=== PATIENT | male | born 1985 | race Caucasian/White ===

== ENCOUNTER 2016-11-06 07:44 | Inpatient (IN) | payer OTHER ==
[~2016-11-06] VITALS: Ht 182.9 cm; Wt 101.4 kg
[2016-11-06 07:50] VITALS: BP 120/76; PULSE 65; RESP 14; TEMP 98; O2SAT 98
--- NOTE | 2016-11-06 07:55 | PD ---
HPI Chief Complaint: Psychiatric Symptoms Time Seen by Provider: 07:52 Travel History International Travel<30 days: No Contact w/Intl Traveler<30days: No Traveled to known affect area: No History of Present Illness HPI This is a 31-year-old male who states he has a history of schizophrenia who presents to the emergency department brought in under a Mckay act. He reports that for several days he's been hearing voices telling him to run into traffic. This usually is a sign that his schizophrenia is getting out of control. His symptoms are moderate and constant, associated with some depression as the voices are telling him that he is an "idiot". He was brought in under a Mckay act by police. He admits to intermittent alcohol use and intermittent drug use. PFSH Past Medical History Medical History: Denies Significant Hx Social History Alcohol Use: Yes Tobacco Use: Yes Substance Use: Yes (marijuana and sometimes other drugs) Allergies-Medications (Allergen,Severity, Reaction): Coded Allergies: No Known Allergies (Unverified , 11/06/16) Reported Meds & Prescriptions Reported Meds & Active Scripts Active Reported Olanzapine 15 Mg Tab 15 Mg PO HS Sertraline (Sertraline HCl) 100 Mg Tab 100 Mg PO DAILY Review of Systems Except as stated in HPI: all other systems reviewed are Neg Physical Exam Narrative GENERAL: Disheveled SKIN: Warm and dry. HEAD: Atraumatic. Normocephalic. EYES: Pupils equal and round. No injection or drainage. ENT: Moist mucous membranes NECK: Trachea midline. CARDIOVASCULAR: Regular rate and rhythm. No murmur appreciated. RESPIRATORY: Clear to auscultation. Breath sounds equal bilaterally. GASTROINTESTINAL: Abdomen soft, non-tender, nondistended. MUSCULOSKELETAL: No obvious deformities. NEUROLOGICAL: Awake and alert. No obvious cranial nerve deficits. Moving all extremities. PSYCHIATRIC: Poor eye contact, flat affect Data Data Last Documented VS Vital Signs Date Time Temp Pulse Resp B/P Pulse Ox O2 Delivery O2 Flow Rate FiO2 11/06/16 07:50 98.0 65 14 120/76 98 Room Air Orders Complete Blood Count With Diff (11/06/16 07:52) Comprehensive Metabolic Panel (11/06/16 07:52) Drug Screen, Random Urine (11/06/16 07:52) Alcohol (Ethanol) (11/06/16 07:52) Psych Screen (11/06/16 07:52) Labs Laboratory Tests Test 11/06/16 11/06/16 07:56 08:09 White Blood Count 10.0 TH/MM3 Red Blood Count 5.32 MIL/MM3 Hemoglobin 15.8 GM/DL Hematocrit 45.9 % Mean Corpuscular Volume 86.2 FL Mean Corpuscular Hemoglobin 29.6 PG Mean Corpuscular Hemoglobin 34.3 % Concent Red Cell Distribution Width 14.0 % Platelet Count 243 TH/MM3 Mean Platelet Volume 9.4 FL Neutrophils (%) (Auto) 72.3 % Lymphocytes (%) (Auto) 20.0 % Monocytes (%) (Auto) 6.6 % Eosinophils (%) (Auto) 0.5 % Basophils (%) (Auto) 0.6 % Neutrophils # (Auto) 7.2 TH/MM3 Lymphocytes # (Auto) 2.0 TH/MM3 Monocytes # (Auto) 0.7 TH/MM3 Eosinophils # (Auto) 0.0 TH/MM3 Basophils # (Auto) 0.1 TH/MM3 CBC Comment DIFF FINAL Differential Comment Sodium Level 140 MEQ/L Potassium Level 4.0 MEQ/L Chloride Level 105 MEQ/L Carbon Dioxide Level 27.3 MEQ/L Anion Gap 8 MEQ/L Blood Urea Nitrogen 15 MG/DL Creatinine 0.79 MG/DL Estimat Glomerular Filtration 113 ML/MIN Rate Random Glucose 100 MG/DL Calcium Level 8.8 MG/DL Total Bilirubin 0.6 MG/DL Aspartate Amino Transf 36 U/L (AST/SGOT) Alanine Aminotransferase 51 U/L (ALT/SGPT) Alkaline Phosphatase 67 U/L Total Protein 7.7 GM/DL Albumin 4.0 GM/DL Ethyl Alcohol Level LESS THAN 3 MG/DL Urine Opiates Screen NEG Urine Barbiturates Screen NEG Urine Amphetamines Screen NEG Urine Benzodiazepines Screen NEG Urine Cocaine Screen NEG Urine Cannabinoids Screen NEG MDM Medical Decision Making Medical Screen Exam Complete: Yes Emergency Medical Condition: Yes Interpretation(s) afebrile, no tachycardia, normotensive no leukocytosis electrolytes within normal limits urine drug screen negative, alcohol negative Differential Diagnosis alcohol intoxication, drug intoxication, schizophrenia Narrative Course This is a 31-year-old male with a history of schizophrenia who presents to the emergency department with increasing auditory hallucinations. Patient's labs are all reassuring. I think is appropriate for psychiatric evaluation. Diagnosis Primary Impression: Schizophrenia Matilde Walker MD Nov 06, 2016 07:55
[2016-11-06] MEDS ORDERED: SERT-129 PO (07:57)
[2016-11-06] MEDS ORDERED: OLAN15TA PO (07:57)
[2016-11-06 08:08] LABS: AUTOMATED NEUTROPHIL # 7.2 TH/MM3 (1.8-7.7); BASOPHIL # 0.1 TH/MM3 (0-0.2); BASOPHIL % 0.6 % (0.0-2.0); EOSINOPHIL % 0.5 % (0.0-4.0); HEMATOCRIT 45.9 % (39.0-51.0); HEMO FLAGS DIFF FINAL; MEAN CELL VOLUME 86.2 FL (80.0-100.0); MEAN CORPUSCULAR HEMOGLOBIN 29.6 PG (27.0-34.0); MEAN CORPUSCULAR HGB CONC 34.3 % (32.0-36.0); MONO % 6.6 % (0.0-8.0); NEUT % 72.3 % (16.0-70.0); PLATELET COUNT 243 TH/MM3 (150-450); RED BLOOD COUNT 5.32 MIL/MM3 (4.50-5.90)
[2016-11-06 08:24] LABS: ANION GAP 8 MEQ/L (5-15)
[2016-11-06 08:27] LABS: ALKALINE PHOSPHATASE 67 U/L (45-117); ALT (GPT) 51 U/L (12-78); AST (GOT) 36 U/L (15-37); BICARBONATE 27.3 MEQ/L (21.0-32.0); BLOOD UREA NITROGEN 15 MG/DL (7-18); CHLORIDE 105 MEQ/L (98-107); GLOMERULAR FILTRATION RATE 113 ML/MIN (>89); SODIUM (NA) 140 MEQ/L (136-145); TOTAL BILIRUBIN ADULT 0.6 MG/DL (0.2-1.0)
[2016-11-06 08:58] LABS: AMPHETAMINE, URINE NEG (NEG); BARBITURATES, URINE NEG (NEG); COCAINE, URINE NEG (NEG)
[2016-11-06 09:40] VITALS: BP 122/68
[2016-11-06 10:40] VITALS: BP 105/58; PULSE 62; RESP 16; TEMP 96.9; O2SAT 98
[2016-11-06 14:00] VITALS: BP 118/69; PULSE 74; RESP 18
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
[2016-11-06] MEDS ORDERED: BENZTROPINE MESYLATE 2 MG/2 ML VIAL IM PRN (14:30)
[2016-11-06] MEDS ORDERED: ALUMINUM/MAGNESIUM/SIMETH 30 ML CUP PO PRN (14:30)
[2016-11-06] MEDS ORDERED: traZODone HCL 50 MG TAB PO PRN (14:30)
[2016-11-06] MEDS ORDERED: diphenhydrAMINE HCL 50 MG CAP PO PRN (14:30)
[2016-11-06] MEDS ORDERED: LORazepam 2 MG/ML VIAL IM PRN (14:30)
[2016-11-06] MEDS ORDERED: diphenhydrAMINE HCL 50 MG/ML VIAL IM PRN (14:30)
[2016-11-06] MEDS ORDERED: BENZTROPINE MESYLATE 1 MG TAB PO PRN (14:30)
[2016-11-06] MEDS ORDERED: MAGNESIUM HYDROXIDE SUSP 30 ML CUP PO PRN (14:30)
[2016-11-06] MEDS ORDERED: LORazepam 0.5 MG TAB PO PRN (14:30)
[2016-11-06] MEDS ORDERED: ACETAMINOPHEN 325 MG TAB PO PRN (14:30)
[2016-11-06] MEDS ORDERED: hydrOXYzine HCL 50 MG TAB PO PRN (15:00)
[2016-11-06] MEDS: OLANZapine 10 MG TAB PO SCH ×2 (16:12→20:50)
[2016-11-06 17:42] VITALS: BP 115/70; PULSE 78; RESP 18; TEMP 97.2
[2016-11-07 05:17] VITALS: BP 140/73; PULSE 88; RESP 18; TEMP 96.4
[2016-11-07 08:02] LABS: ANION GAP 7 MEQ/L (5-15); BICARBONATE 29.5 MEQ/L (21.0-32.0); BLOOD UREA NITROGEN 12 MG/DL (7-18); CHLORIDE 106 MEQ/L (98-107); GLOMERULAR FILTRATION RATE 116 ML/MIN (>89); HDL CHOLESTEROL 51.5 MG/DL (40.0-60.0); LDL CHOLESTEROL 79 MG/DL (0-99); POTASSIUM 4.3 MEQ/L (3.5-5.1); SODIUM (NA) 142 MEQ/L (136-145)
[2016-11-07] MEDS: NICOTINE 21 MG/24 HR PATCH T-DERMAL SCH (09:02)
[2016-11-07] MEDS: OLANZapine 10 MG TAB PO SCH ×2 (09:02→20:41)
[2016-11-07] MEDS: SERTRALINE HCL 50 MG TAB PO SCH (09:02)
[2016-11-07 09:35] VITALS: BP 140/73; PULSE 88; RESP 18; TEMP 98.6; O2SAT 94
[2016-11-07 09:52] LABS: HEMOGLOBIN A1a 1.1 %; HEMOGLOBIN A1b 0.8 %; HEMOGLOBIN Ao 86.2 %; HEMOGLOBIN LA1C 1.8 %; HEMOGLOBIN P3 3.3 %
--- NOTE | 2016-11-07 14:05 | HHI.PYPN ---
Subjective Remarks Pt seen and discussed with staff. He reports that he is tolerating medication without side effects. He reports AH persists but have decreased in intensity. He reports that he slept better last night and that he had not been sleeping prior to admission due to AH. No behavioral problems on unit. Review of Systems Psychiatric: COMPLAINS OF: Hallucinations Objective Alert: Yes [place]: Person, Place, Date, Situation Mood: Calm Affect: Flat Memory Intact: Immediate, Recent, Remote Hallucinations: Auditory Delusions: Yes Delusion Type: Paranoid Suicidal: Ideation (denies) Homicidal: Ideation (denies) Insight/Judgement poor Labs Test 11/07/16 07:16 Sodium Level 142 MEQ/L Potassium Level 4.3 MEQ/L Chloride Level 106 MEQ/L Carbon Dioxide Level 29.5 MEQ/L Anion Gap 7 MEQ/L Blood Urea Nitrogen 12 MG/DL Creatinine 0.77 MG/DL Estimat Glomerular Filtration 116 ML/MIN Rate Random Glucose 96 MG/DL Hemoglobin A1c 5.4 % Calcium Level 8.7 MG/DL Triglycerides Level 43 MG/DL Cholesterol Level 139 MG/DL LDL Cholesterol 79 MG/DL HDL Cholesterol 51.5 MG/DL Cholesterol/HDL Ratio 2.69 RATIO Vitals/IOs Vital Signs Date Time Temp Pulse Resp B/P Pulse Ox O2 Delivery O2 Flow Rate FiO2 11/07/16 09:35 98.6 88 18 140/73 94 11/06/16 10:40 Room Air Assessment & Plan Problem List: (1) schizoaffective disorder depressed Assessment & Plan Continue current tx plan. Estimated LOS: days Justification for Cont. Inpt. impairments in reality construction Request HC Surrog/Guard Advoc?: Ngoc Martinez MD Nov 07, 2016 14:04
[2016-11-07 19:17] VITALS: BP 112/62; PULSE 94; RESP 18; TEMP 97.9; O2SAT 98
[2016-11-08 05:56] VITALS: BP 120/71; PULSE 101; RESP 18; TEMP 98.2; O2SAT 98
[2016-11-08] MEDS: OLANZapine 10 MG TAB PO SCH (09:00)
[2016-11-08] MEDS: SERTRALINE HCL 50 MG TAB PO SCH (09:00)
[2016-11-08] MEDS: NICOTINE 21 MG/24 HR PATCH T-DERMAL SCH (09:00)
--- NOTE | 2016-11-08 11:39 | HHI.PYPN ---
Subjective Remarks Patient seen and examined with counselor. Chart reviewed. Case discussed with nursing staff who reports patient was still complaining of hearing voices this morning. On my examination today, the patient initially denies any auditory hallucinations but then describes some deprecatory auditory hallucinations somewhat later. He is a somewhat vague historian, and there does appear to be some subtle thought disorder. He denies any suicidal or homicidal ideation. He denies side effects from medications. Review of Systems ROS Limitations: Poor Historian Other No physical complaints today Objective Alert: Yes [place]: Person, Place, Date, Situation Mood: Calm Affect: Flat (remains quite flat) Memory Intact: Comment (Seems intact on clinical exam) Hallucinations: Auditory (variable, non-command) Delusions: No Delusion Type: Other (No delusions) Suicidal: Ideation (Denies SI) Homicidal: Ideation (Denies HI) Insight/Judgement Fair Remarks No abnormal motor movements noted Labs Labs reviewed. No new labs. Admission labs reviewed. Vitals/IOs Vital Signs Date Time Temp Pulse Resp B/P Pulse Ox O2 Delivery O2 Flow Rate FiO2 11/08/16 05:56 98.2 101 18 120/71 98 11/06/16 10:40 Room Air Assessment & Plan Problem List: (1) Schizoaffective disorder ICD Code: F25.9 Assessment & Plan Titrate Zyprexa to target residual psychotic symptoms. Continue Zoloft as ordered. Continue other medications and care as ordered. Justification for Cont. Inpt. Resolving impairments in reality construction. Medication changes in process. Risk for decompensation. Discharge Planning Pending psychiatric stabilization. Hopeful for discharge within the next day or 2. Request HC Surrog/Guard Advoc?: No Problem Qualifiers (1) Schizoaffective disorder: Qualified Code: F25.1 - Schizoaffective disorder, depressive type Dlyan Blas MD Nov 08, 2016 11:39
[2016-11-08 22:07] VITALS: BP 138/66; PULSE 83; RESP 18; TEMP 97.7; O2SAT 93
[2016-11-09 05:16] VITALS: BP 120/71; PULSE 67; RESP 18; TEMP 97.9; O2SAT 98
[2016-11-09] MEDS: SERTRALINE HCL 50 MG TAB PO SCH (08:13)
[2016-11-09] MEDS: NICOTINE 21 MG/24 HR PATCH T-DERMAL SCH (08:13)
[2016-11-09] MEDS ORDERED: OLANZapine 10 MG TAB PO SCH (09:00)
[2016-11-09] MEDS ORDERED: OLAN10TA PO (12:05)
[2016-11-09] MEDS ORDERED: ZOLO50TA PO (12:05)
[2016-11-09] MEDS ORDERED: OLAN15TA PO (12:05)
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
== END 2016-11-09 13:25 | disposition home or self-care (01) | DRG 885 ==
LOC: NEPE 07:44 → NEDA 15:34 → H270 16:49
PROVIDERS: ADMIT Psychiatry & Neurology Psychiatry; ATTEND Psychiatry & Neurology Psychiatry
DX: F25.9 Schizoaffective disorder, unspecified (principal); Z59.0 Homelessness; Z72.0 Tobacco use
CPT/HCPCS: 80048; 80053; 80061; 80307; 80320; 83036; 85025; 99285